=== PATIENT | female | born 1995 | race Caucasian/White ===

== ENCOUNTER 2018-06-26 12:24 | Outpatient (CLI) | payer MEDICAID ==
[2018-06-26 13:41] LABS: ADD MAN DIFF? NO
[2018-06-26 13:44] LABS: BASOPHILS % 0.3 % (0.0-2.0); EOSINOPHILS # 0.5 10^3/ul (0.0-0.5); EOSINOPHILS % 5.3 % (0.0-7.0); HEMATOCRIT 36.5 % (37.0-47.0); HEMOGLOBIN 12.1 g/dl (12.0-16.0); LYMPHOCYTES # 2.1 10^3/ul (0.8-2.9); LYMPHOCYTES % 21.6 % (15.0-51.0); MEAN CORPUSCULAR HEMOGLOBIN 29.4 pg (29.0-33.0); MEAN CORPUSCULAR HGB CONC 33.2 g/dl (32.0-37.0); MEAN CORPUSCULAR VOLUME 88.8 fl (82.0-101.0); MEAN PLATELET VOLUME 9.4 fl (7.4-10.4); MONOCYTE # 0.8 10^3/ul (0.3-0.9); MONOCYTES % 8.1 % (0.0-11.0); NEUTROPHIL # 6.2 10^3/ul (1.6-7.5); NEUTROPHILS % 63.5 % (39.0-77.0); PLATELET COUNT 237 10^3/UL (140-415); RED BLOOD COUNT 4.11 10^6/ul (4.20-5.40); RED CELL DISTRIBUTION WIDTH 13.3 % (11.5-14.5)
[2018-06-26 13:44] LABS: WHITE BLOOD COUNT 9.7 10^3/ul (4.8-10.8)
[2018-06-26 14:01] LABS: ALANINE AMINOTRANSFERASE 23 IU/L (13-69); ALBUMIN 3.6 g/dl (3.3-4.9); ALBUMIN/GLOBULIN RATIO 1.12; ALKALINE PHOSPHATASE 84 IU/L (42-121); ANION GAP 6 (5-13); ASPARTATE AMINO TRANSFERASE 21 IU/L (15-46); BILIRUBIN,INDIRECT 0.3 mg/dl (0-1.1); BILIRUBIN,TOTAL 0.3 mg/dl (0.2-1.3); BLOOD UREA NITROGEN 6 mg/dl (7-20); CALCIUM 9.5 mg/dl (8.4-10.2); CARBON DIOXIDE 28 mmol/L (21-31); CHLORIDE 104 mmol/L (97-110); CREATININE 0.44 mg/dl (0.44-1.00); Estimated GFR > 60 mL/min (>60); GLUCOSE 89 mg/dl (70-220); POTASSIUM 3.9 mmol/L (3.5-5.1); SODIUM 138 mmol/L (135-144); TOTAL PROTEIN 6.8 g/dl (6.1-8.1)
== END 2018-06-26 14:28 | disposition home or self-care (01) ==
LOC: OBT 12:24 → L-D 12:25 → OBT 14:28
DX: O62.9 Abnormality of forces of labor, unspecified (principal); Z3A.28 28 weeks gestation of pregnancy
CPT/HCPCS: 36415; 76817; 76818; 80053; 82731; 85025

== ENCOUNTER 2018-06-26 14:32 | Emergency (ER) | payer MEDICAID | END 2018-06-26 15:30 | disposition home or self-care (01) | LOC: FTE 14:32 | DX: O99.52 Diseases of the respiratory system complicating childbirth (principal); R05 Cough; Z3A.28 28 weeks gestation of pregnancy | CPT/HCPCS: 99282; Z7502 ==

== ENCOUNTER 2018-09-14 03:15 | Inpatient (IN) | payer MEDICAID ==
[2018-09-14] MEDS ORDERED: OXYTOCIN 30 UNITS/LR 500 ML IV (04:30)
[2018-09-14] MEDS ORDERED: MISOPROSTOL 50 MCG CAPSULE PO (04:30)
[2018-09-14] MEDS ORDERED: LIDOCAINE 1% (MPF) 30 ML INJ INJ (04:30)
[2018-09-14] MEDS ORDERED: OXYCODONE/ACETAMINOPHEN (5/325) TAB PO (04:30)
[2018-09-14] MEDS ORDERED: METHYLERGONOVINE 0.2 MG INJ IM (04:30)
[2018-09-14] MEDS ORDERED: CARBOPROST 250 MCG INJ IM (04:30)
[2018-09-14] MEDS: LACTATED RINGER'S 1,000 ML IV ×3 (05:30→20:29)
[2018-09-14 05:49] LABS: ADD MAN DIFF? NO
[2018-09-14 05:55] LABS: BASOPHILS % 0.4 % (0.0-2.0); EOSINOPHILS # 0.7 10^3/ul (0.0-0.5); EOSINOPHILS % 6.3 % (0.0-7.0); HEMATOCRIT 37.3 % (37.0-47.0); HEMOGLOBIN 12.7 g/dl (12.0-16.0); LYMPHOCYTES # 3.2 10^3/ul (0.8-2.9); MEAN CORPUSCULAR HEMOGLOBIN 29.6 pg (29.0-33.0); MEAN CORPUSCULAR VOLUME 86.9 fl (82.0-101.0); MEAN PLATELET VOLUME 11.4 fl (7.4-10.4); MONOCYTE # 0.9 10^3/ul (0.3-0.9); MONOCYTES % 8.2 % (0.0-11.0); NEUTROPHIL # 5.5 10^3/ul (1.6-7.5); NEUTROPHILS % 53.1 % (39.0-77.0); PLATELET COUNT 165 10^3/UL (140-415); RED BLOOD COUNT 4.29 10^6/ul (4.20-5.40); RED CELL DISTRIBUTION WIDTH 13.2 % (11.5-14.5)
[2018-09-14 05:55] LABS: WHITE BLOOD COUNT 10.4 10^3/ul (4.8-10.8)
[2018-09-14 06:13] LABS: ADD UMIC YES; UR ASCORBIC ACID NEGATIVE (NEGATIVE); UR BACTERIA FEW /HPF (NONE SEEN); UR BILIRUBIN (Dip) NEGATIVE (NEGATIVE); UR BLOOD (Dip) NEGATIVE (NEGATIVE); UR CLARITY CLEAR (CLEAR); UR COLOR STRAW (YELLOW); UR GLUCOSE (Dip) NEGATIVE (NEGATIVE); UR KETONES (Dip) NEGATIVE (NEGATIVE); UR LEUKOCYTE ESTERASE (Dip) NEGATIVE Leu/ul (NEGATIVE); UR NITRITE (Dip) NEGATIVE (NEGATIVE); UR RBC 0 /HPF (0-5); UR SPECIFIC GRAVITY (Dip) 1.008 (1.003-1.030); UR SQUAMOUS EPITHELIAL CELL FEW /HPF (FEW); UR TOTAL PROTEIN (Dip) 2+ mg/dl (NEGATIVE); UR UROBILINOGEN (Dip) NEGATIVE (NEGATIVE); UR WBC 1 /HPF (0-5)
[2018-09-14 06:13] LABS: URIC ACID 5.3 mg/dl (3.1-7.9)
[2018-09-14 06:17] LABS: INR 0.84; PROTIME 11.6 Sec (11.9-14.9); PT RATIO 0.9
[2018-09-14 06:25] LABS: ALANINE AMINOTRANSFERASE 25 IU/L (13-69); ALBUMIN 3.4 g/dl (3.3-4.9); ALBUMIN/GLOBULIN RATIO 1.09; ALKALINE PHOSPHATASE 174 IU/L (42-121); ANION GAP 8 (5-13); ASPARTATE AMINO TRANSFERASE 26 IU/L (15-46); BILIRUBIN,INDIRECT 0.3 mg/dl (0-1.1); BILIRUBIN,TOTAL 0.3 mg/dl (0.2-1.3); BLOOD UREA NITROGEN 11 mg/dl (7-20); CALCIUM 9.6 mg/dl (8.4-10.2); CARBON DIOXIDE 23 mmol/L (21-31); CHLORIDE 109 mmol/L (97-110); CREATININE 0.56 mg/dl (0.44-1.00); Estimated GFR > 60 mL/min (>60); GLUCOSE 60 mg/dl (70-220); PARTIAL THROMBOPLASTIN TIME 26.6 Sec (23.0-35.0); SODIUM 140 mmol/L (135-144); TOTAL PROTEIN 6.5 g/dl (6.1-8.1)
[2018-09-14] MEDS ORDERED: SODIUM CHLORIDE 0.9% 1L IRRIG IRR (06:30)
[2018-09-14] MEDS: MISOPROSTOL 50 MCG CAPSULE PO ×4 (09:48→22:58)
[2018-09-14 15:09] LABS: RAPID PLASMA REAGIN NONREACTIVE (NR)
[2018-09-14] MEDS: BUTORPHANOL 2 MG INJ IV (18:59)
[2018-09-15] MEDS: BUTORPHANOL 2 MG INJ IV (00:42)
[2018-09-15] MEDS: MISOPROSTOL 50 MCG CAPSULE PO ×2 (03:11→08:02)
[2018-09-15] MEDS: LACTATED RINGER'S 1,000 ML IV ×3 (04:36→16:12)
[2018-09-15] MEDS: MISOPROSTOL 50 MCG CAPSULE VAG (16:13)
[2018-09-15] MEDS ORDERED: FENTAnyl 2MCG/ML-ROPIV 0.2% 100 ML (16:25)
[2018-09-15] MEDS ORDERED: ONDANSETRON 4 MG INJ IV (16:30)
[2018-09-15] MEDS ORDERED: NALOXONE (0.4 MG/ML) INJ IV (16:30)
[2018-09-15] MEDS ORDERED: DIPHENHYDRAMINE 50 MG INJ IV (16:30)
[2018-09-15] MEDS: FENTAnyl 2MCG/ML-ROPIV 0.2% 100 ML BAG EPI (17:05)
[2018-09-15] MEDS: OXYTOCIN 30 UNITS/LR 500 ML IV ×2 (17:33→19:30)
[2018-09-16] MEDS: AMPICILLIN 2 GM/NS (PMX) 100 ML IV (00:58)
[2018-09-16] MEDS: FENTAnyl 2MCG/ML-ROPIV 0.2% 100 ML BAG EPI (01:36)
[2018-09-16] MEDS: LACTATED RINGER'S 1,000 ML IV (02:03)
[2018-09-16] MEDS: MISOPROSTOL 200 MCG TAB PR (03:23)
[2018-09-16] MEDS: MINERAL OIL LIGHT 10 ML VIAL TOP (03:23)
[2018-09-16] MEDS: OXYTOCIN 30 UNITS/LR 500 ML IV ×3 (03:25→08:41)
[2018-09-16] MEDS: ACETAMINOPHEN 1000MG/100ML IV 100 ML IVPB (03:33)
[2018-09-16] MEDS: GENTAMICIN 80 MG/NS (PMX) 50 ML IVPB (03:37)
[2018-09-16] MEDS ORDERED: METHYLERGONOVINE 0.2 MG INJ IM (04:00)
[2018-09-16] MEDS ORDERED: CARBOPROST 250 MCG INJ IM (04:00)
[2018-09-16] MEDS ORDERED: DIBUCAINE 1% 30 GM OINT TOP (04:00)
[2018-09-16] MEDS ORDERED: MISOPROSTOL 200 MCG TAB PR (04:00)
[2018-09-16] MEDS ORDERED: MAGNESIUM HYDROXIDE 30ML CUP PO (04:00)
[2018-09-16] MEDS ORDERED: SENNA/DOCUSATE NA (8.6MG/50MG) TAB PO (04:00)
[2018-09-16] MEDS ORDERED: ONDANSETRON 4 MG INJ IV (04:00)
[2018-09-16] MEDS ORDERED: ACETAMINOPHEN 325 MG TAB PO ×2 (04:00)
[2018-09-16] MEDS ORDERED: OXYTOCIN 30 UNITS/LR 500 ML IV (04:00)
[2018-09-16] MEDS: CLINDAMYCIN 900 MG/D5W (PMX) 50 ML IVPB (04:24)
[2018-09-16] MEDS ORDERED: AMPICILLIN 1 GM/NS (PMX) 50 ML IV (05:00)
[2018-09-16] MEDS: PIPER-TAZO 3.375 GM IV (PMX) 100 ML IVPB ×3 (08:41→21:12)
[2018-09-16] MEDS: LACTATED RINGER'S 1,000 ML IV* ×3 (08:41→19:45)
[2018-09-16] MEDS: WITCH HAZEL/GLYCERIN PAD PR (14:47)
[2018-09-16] MEDS: LANOLIN HPA 1 PKT TOP (14:47)
[2018-09-16] MEDS: BENZOCAINE 20% 56 ML SPRAY TOP (14:47)
[2018-09-17] MEDS: IBUPROFEN 600 MG TAB PO (00:03)
[2018-09-17] MEDS: PIPER-TAZO 3.375 GM IV (PMX) 100 ML IVPB ×3 (03:00→13:02)
[2018-09-17] MEDS: LACTATED RINGER'S 1,000 ML IV* ×2 (03:45→13:01)
[2018-09-17 08:24] LABS: ADD MAN DIFF? NO
[2018-09-17 08:40] LABS: BASOPHILS % 0.4 % (0.0-2.0); EOSINOPHILS # 0.7 10^3/ul (0.0-0.5); EOSINOPHILS % 6.1 % (0.0-7.0); HEMATOCRIT 30.4 % (37.0-47.0); HEMOGLOBIN 10.6 g/dl (12.0-16.0); LYMPHOCYTES # 2.6 10^3/ul (0.8-2.9); MEAN CORPUSCULAR HEMOGLOBIN 29.9 pg (29.0-33.0); MEAN CORPUSCULAR HGB CONC 34.9 g/dl (32.0-37.0); MEAN CORPUSCULAR VOLUME 85.9 fl (82.0-101.0); MEAN PLATELET VOLUME 11.7 fl (7.4-10.4); MONOCYTE # 0.8 10^3/ul (0.3-0.9); MONOCYTES % 6.8 % (0.0-11.0); NEUTROPHILS % 63.2 % (39.0-77.0); PLATELET COUNT 133 10^3/UL (140-415); RED BLOOD COUNT 3.54 10^6/ul (4.20-5.40); RED CELL DISTRIBUTION WIDTH 13.2 % (11.5-14.5)
[2018-09-17 08:40] LABS: WHITE BLOOD COUNT 11.2 10^3/ul (4.8-10.8)
[2018-09-19] MEDS: FERROUS SULFATE (EC) 325 MG TAB PO (09:12)
[2018-09-19 09:54] LABS: ADD MAN DIFF? NO
[2018-09-19 10:02] LABS: BASOPHILS % 0.2 % (0.0-2.0); EOSINOPHILS # 0.7 10^3/ul (0.0-0.5); HEMOGLOBIN 11.1 g/dl (12.0-16.0); LYMPHOCYTES # 2.8 10^3/ul (0.8-2.9); MEAN CORPUSCULAR HEMOGLOBIN 29.2 pg (29.0-33.0); MEAN CORPUSCULAR HGB CONC 33.6 g/dl (32.0-37.0); MEAN CORPUSCULAR VOLUME 86.8 fl (82.0-101.0); MEAN PLATELET VOLUME 10.8 fl (7.4-10.4); MONOCYTE # 0.6 10^3/ul (0.3-0.9); MONOCYTES % 6.8 % (0.0-11.0); NEUTROPHIL # 4.6 10^3/ul (1.6-7.5); NEUTROPHILS % 51.8 % (39.0-77.0); NUCLEATED RED BLOOD CELLS% 0.2 /100WBC (0.0-0.0); PLATELET COUNT 204 10^3/UL (140-415); RED CELL DISTRIBUTION WIDTH 13.6 % (11.5-14.5)
[2018-09-19 10:02] LABS: WHITE BLOOD COUNT 8.8 10^3/ul (4.8-10.8)
== END 2018-09-19 15:10 | disposition home or self-care (01) | DRG 807 ==
LOC: OBT 03:15 → PP1 09-16 05:43 → L-D 03:15 → OBT 04:10 → L-D 04:10
PROC: 10E0XZZ Delivery of Products of Conception, External Approach (ICD-10-PCS; principal; 2018-09-16)
PROC: 0HQ9XZZ Repair Perineum Skin, External Approach (ICD-10-PCS; 2018-09-16)
DX: O13.3 Gestational [pregnancy-induced] hypertension without significant proteinuria, third trimester (principal); Z37.0 Single live birth; Z3A.39 39 weeks gestation of pregnancy; Z3A.40 40 weeks gestation of pregnancy; O69.1XX0 Labor and delivery complicated by cord around neck, with compression, not applicable or unspecified; O70.9 Perineal laceration during delivery, unspecified
CPT/HCPCS: 62322; 76815; 80053; 81001; 84560; 85025; 85384; 85610; 85730; 86592; 86850; 86900; 86901; 87070; 88307; 99464